=== PATIENT | female | born 1930 | race Hispanic/Latino ===

== ENCOUNTER 2016-11-11 12:34 | Inpatient (IN) | payer MEDICARE, BC ==
[2016-11-11] MEDS ORDERED: Naproxen 500 MG TAB PO STA (13:03)
[2016-11-11] MEDS ORDERED: Naproxen 500 MG TAB PO ONE (13:06)
--- NOTE | 2016-11-11 13:33 | ED PDOC ---
Arrival/HPI - General Chief Complaint: Hip Pain Time Seen by Provider: 11/11/16 12:44 Historian: Patient - History of Present Illness Time/Duration: Other (x 2days ) Associated Symptoms (Text): 11/11/16 13:34 Madeline Thacker is an 86 year old female with a previous medical history of bilateral hip replacement who presents to the ED with complaints of left hip pain ongoing for 2 days after tripping and falling. Patient denies any other injury, dizziness, headache, chest pain, shortness of breath or loss of consciousness. PMD: none provided Past Medical History - Provider Review Nursing Documentation Reviewed: Yes - Cardiac Hx Atrial Fibrillation: Yes Hx Hypertension: Yes Hx Pacemaker: Yes - HEENT Hx Cataracts: Yes Hx Deafness: Yes Other/Comment: wears hearing aid - Endocrine/Metabolic Hx Diabetes Mellitus Type 2: Yes - Musculoskeletal/Rheumatological Hx Arthritis: Yes Hx Back Pain: Yes Hx Degenerative Joint Disease: Yes Hx Falls: Yes Hx Fractures: Yes (r ankle) - Psychiatric Hx Substance Use: No - Surgical History Hx Cataract Extraction: Yes Hx Open Reduction Internal Fixation: Yes (r ankle) Other/Comment: [facility] - Anesthesia Hx Anesthesia: Yes Family/Social History - Physician Review Nursing Documentation Reviewed: Yes Family/Social History: No Known Family HX Smoking Status: Never Smoked Hx Alcohol Use: No Hx Substance Use: No Allergies/Home Meds Allergies/Adverse Reactions: Allergies No Known Allergies Allergy (Verified 11/11/16 12:38) Review of Systems - Physician Review All systems were reviewed & negative as marked: Yes - Review of Systems Constitutional: Normal Eyes: absent: Normal, Vision Changes, Photophobia, Eye Pain, Other Respiratory: Normal. absent: SOB, Cough, Sputum, Wheezing, Other Cardiovascular: Normal Gastrointestinal: Normal Genitourinary Female: Normal Musculoskeletal: Other (left hip pain ) Skin: Normal Psychiatric: Normal Physical Exam Vital Signs Reviewed: Yes Vital Signs Temp Pulse Resp BP Pulse Ox 11/11/16 12:38 98.7 F 60 17 111/54 L 93 L Appearance: Positive for: Well-Appearing, Non-Toxic, Comfortable Pain Distress: None Mental Status: Positive for: Alert and Oriented X 3 - Systems Exam Head: Present: Atraumatic, Normocephalic Pupils: Present: PERRL Extroacular Muscles: Present: EOMI Conjunctiva: Present: Normal Neck: Present: Normal Range of Motion Respiratory/Chest: Present: Clear to Auscultation, Good Air Exchange. No: Respiratory Distress, Accessory Muscle Use Cardiovascular: Present: Regular Rate and Rhythm, Normal S1, S2. No: Murmurs Abdomen: Present: Normal Bowel Sounds. No: Tenderness, Distention, Peritoneal Signs Upper Extremity: Present: Normal Inspection. No: Cyanosis, Edema Lower Extremity: Present: Normal ROM, Other (left hip tenderness ). No: Deformity Neurological: Present: GCS=15, CN II-XII Intact, Speech Normal Skin: Present: Warm, Dry, Normal Color. No: Rashes Medical Decision Making ED Course and Treatment: 11/11/16 13:31 Initial Plan: * Naproxen 500 mg PO * x-ray hip * reevaluation Scribe Attestation: Documented by Leti Chan, acting as a scribe for Ramiro Barrera MD. Provider Scribe Attestation: All medical record entries made by the Scribe were at my direction and personally dictated by me. I have reviewed the chart and agree that the record accurately reflects my personal performance of the history, physical exam, medical decision making, and the department course for this patient. I have also personally directed, reviewed, and agree with the discharge instructions and disposition. - RAD Interpretation Radiology Orders: 11/11/16 13:03 HIP MIN 2V W/ PELVIS LT [RAD] Stat - Medication Orders Current Medication Orders: Discontinued Medications Naproxen (Naproxen) 500 mg PO STAT STA Stop: 11/11/16 13:04 Last Admin: 11/11/16 13:07 Dose: 500 mg Naproxen (Naproxen) Confirm Administered Dose 500 mg PO .STK-MED ONE Stop: 11/11/16 13:07 Disposition/Present on Arrival - Present on Arrival Any Indicators Present on Arrival: No - Disposition Have Diagnosis and Disposition been Completed?: Yes Diagnosis: Contusion of hip Disposition: HOME/ ROUTINE Disposition Time: 14:00 Condition: FAIR Discharge Instructions (ExitCare): Contusion in Adults (ED) Prescriptions: Naproxen [Naprosyn] 500 mg PO Q12H #20 tab
--- NOTE | 2016-11-11 13:57 | RAD ---
PROCEDURE: Pelvis and left hip HISTORY: trauma COMPARISON: TECHNIQUE: Four views FINDINGS: Bilateral hip prosthesis. No evidence of dislocation, fracture or loosening IMPRESSION: Negative study
[2016-11-11 16:14] LABS: BASO # 0.1 K/uL (0.0-0.2); BASO % 0.7 % (0.0-2.0); EOS # 0.2 K/uL (0.0-0.7); HEMOGLOBIN 12.6 g/dL (12.0-16.0); LYMPH # 1.5 K/uL (1.0-4.3); LYMPH % 15.7 % (20.0-40.0); MEAN CORPUSCULAR HEMOGLOBIN 31.1 pg (27.0-31.0); MEAN CORPUSCULAR HGB CONC 32.7 g/dL (33.0-37.0); MEAN PLATELET VOLUME 9.3 fl (7.2-11.7); MONO # 0.9 K/uL (0.0-0.8); MONO % 9.6 % (0.0-10.0); RBC 4.05 Mil/uL (3.80-5.20); RED CELL DISTRIBUTION WIDTH 13.7 % (11.5-14.5); WHITE BLOOD COUNT 9.7 K/uL (4.8-10.8)
[2016-11-11 16:23] LABS: ALB/GLOB RATIO 1.3 (1.0-2.1); ALBUMIN 4.4 g/dL (3.5-5.0); CALCIUM 9.3 mg/dL (8.4-10.2)
[2016-11-11] MEDS ORDERED: Sodium Chloride 0.9% 1,000 ML IV STA (16:29)
[2016-11-12 07:08] LABS: HEMOGLOBIN 11.9 g/dL (12.0-16.0); MEAN CELL VOLUME 95.1 fl (81.0-99.0); MEAN CORPUSCULAR HEMOGLOBIN 31.4 pg (27.0-31.0); RBC 3.8 Mil/uL (3.80-5.20); RED CELL DISTRIBUTION WIDTH 13.9 % (11.5-14.5); WHITE BLOOD COUNT 7.1 K/uL (4.8-10.8)
[2016-11-12 07:32] LABS: INR 1.7 (0.9-1.2); PARTIAL THROMBOPLASTIN TIME 32.4 Seconds (25.6-37.1); PROTHROMBIN TIME 18.9 Seconds (9.8-13.1)
[2016-11-12 07:42] LABS: ALB/GLOB RATIO 1.2 (1.0-2.1); ALBUMIN 3.7 g/dL (3.5-5.0); ALT/SGPT 38 U/L (9-52); AST/SGOT 32 U/L (14-36); BLOOD UREA NITROGEN 36 mg/dl (7-17); CALCIUM 8.9 mg/dL (8.4-10.2); GFR AFRICAN-AMERICAN > 60; GFR NON-AFRICAN AMERICAN 53; HDL CHOLESTEROL 38 MG/DL (30-70)
[2016-11-12 07:51] LABS: T4 8.33 ug/dl (5.5-11.0)
[2016-11-12 07:54] LABS: LDL CHOLESTEROL 83 mg/dL (0-129)
[2016-11-12] MEDS ORDERED: Patient's Own Med (Irbesartan/Hydrochlorothiazide [Irbesartan-Hctz 300-12.5 Mg Tb] 1 TAB) PO SCH (09:00)
[2016-11-12] MEDS ORDERED: Patient's Own Med (Biotin [Biotin] 1 CAP) PO SCH (09:00)
[2016-11-12] MEDS: Albuterol-Ipratrop 3 mg / 0.5 (3 ml) UD INH PRN (11:51)
--- NOTE | 2016-11-12 15:30 | CP.PCM.HP ---
History of Present Illness - History of Present Illness History of Present Illness: CC: L Hip pain. 86 y/o F, brought by EMS to [facility] for evaluation of L hip pain, onset 2 days CHEMIST, alleviating by rest/ inactivity and pain medications. Pt came c/o of severe L hip pain, associated to tripping ad falling on that side , pain is constant, throbbing type, sharp with severe intensity 10:10 Worsening symptoms: Weakness, Hx of R-L THR. Aggravating factor: Unable to lift the L leg to advance it forward. Unable to flex b/L hips. Pt denied: Injury, fever, chills, v/v/d, abdominal pain. urinary symptoms, dizziness, headache, LOC, CP, SOB, sick contact. PMHx: B/L THR, A Fib, HTN, PPM, DMII, O/A, Back pain, ORIF R Ankle. EKG shows: Atrial-sense ventricular pace rhythm. Echo shows: LV function normal, LVEF normal range. Mild Pulmonary Hypertension. Hip/Pelv X-Ray: No dislocation, fracture or displacement. Present on Admission - Present on Admission Any Indicators Present on Admission: No Review of Systems - Constitutional Constitutional: Weakness - EENT Eyes: Change in Vision, Requires Corrective Lenses Ears: Decreased Hearing Nose/Mouth/Throat: Other (negative) - Cardiovascular Cardiovascular: Other (negative) - Respiratory Respiratory: Other (negative) - Gastrointestinal Gastrointestinal: Other (negative) - Genitourinary Genitourinary: Other (negative) - Musculoskeletal Musculoskeletal: Arthralgias, Back Pain, Limited Range of Motion (L leg/hip), Stiffness - Integumentary Integumentary: Other (negative) - Neurological Neurological: Other (negative) - Psychiatric Psychiatric: Other (negative) - Endocrine Endocrine: Other (negative) - Hematologic/Lymphatic Hematologic: Other (negative) Past Patient History - Past Medical History & Family History Past Medical History?: Yes Pertinent Family History: Unknown - Past Social History Smoking Status: Former Smoker Alcohol: None Drugs: Denies Home Situation {Lives}: With Family - CARDIAC Hx Cardiac Disorders: Yes Hx Atrial Fibrillation: Yes Hx Hypertension: Yes Hx Pacemaker: Yes - PULMONARY Hx Respiratory Disorders: No - NEUROLOGICAL Hx Neurological Disorder: No Other/Comment: denies - HEENT Hx HEENT Problems: Yes Hx Cataracts: Yes Hx Deafness: Yes Other/Comment: wears hearing aid - RENAL Hx Chronic Kidney Disease: No Other/Comment: denies - ENDOCRINE/METABOLIC Hx Endocrine Disorders: Yes Hx Diabetes Mellitus Type 2: Yes - HEMATOLOGICAL/ONCOLOGICAL Hx Blood Disorders: No Other/Comment: denies - INTEGUMENTARY Hx Dermatological Problems: No - MUSCULOSKELETAL/RHEUMATOLOGICAL Hx Musculoskeletal Disorders: Yes Hx Arthritis: Yes Hx Back Pain: Yes Hx Degenerative Joint Disease: Yes Hx Falls: Yes - GASTROINTESTINAL Hx Gastrointestinal Disorders: No - GENITOURINARY/GYNECOLOGICAL Hx Genitourinary Disorders: No - PSYCHIATRIC Hx Psychophysiologic Disorder: No Hx Substance Use: No - SURGICAL HISTORY Hx Surgeries: Yes Hx Cataract Extraction: Yes Hx Open Reduction Internal Fixation: Yes (r ankle) Other/Comment: [facility] - ANESTHESIA Hx Anesthesia: Yes Hx Anesthesia Reactions: No Hx Malignant Hyperthermia: No Has any member of the family had a problem w/ anesthesia?: No Meds Home Medications: Home Medication List Medication Instructions Recorded Confirmed Type Naproxen [Naprosyn] 500 mg PO Q12H #20 tab 11/11/16 Rx Allergies/Adverse Reactions: Allergies Allergy/AdvReac Type Severity Reaction Status Date / Time No Known Allergies Allergy Verified 11/11/16 12:38 Physical Exam - Constitutional Appears: Other (Mild distress.) - Head Exam Head Exam: NORMAL INSPECTION - Eye Exam Eye Exam: PERRL - ENT Exam ENT Exam: Normal Oropharynx - Neck Exam Neck exam: Positive for: Normal Inspection - Respiratory Exam Respiratory Exam: NORMAL BREATHING PATTERN - Cardiovascular Exam Cardiovascular Exam: REGULAR RHYTHM - GI/Abdominal Exam GI & Abdominal Exam: Normal Bowel Sounds, Soft - Extremities Exam Extremities exam: Positive for: tenderness (L hip with decreased ROM) - Back Exam Back exam: NORMAL INSPECTION - Neurological Exam Neurological exam: Alert, Oriented x3 - Psychiatric Exam Psychiatric exam: Normal Mood - Skin Skin Exam: Warm Results - Vital Signs Recent Vital Signs: Last Vital Signs Temp 97.5 F L 11/12/16 08:33 Pulse 68 11/12/16 09:10 Resp 20 11/12/16 08:33 BP 154/67 H 11/12/16 09:10 Pulse Ox 96 11/12/16 09:00 reviewed J.Jose - Labs Result Diagrams: 11/12/16 06:10 11/12/16 06:10 Labs: reviewed JIdaliaPIdalia - EKG Data EKG comments: reviewed J.P. - Impressions Impression: X-Ray Hip/Pelv. reviewed J.P. Echo: reviewed J.P. 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 PT, OT, Orthopedic Consult. - Date & Time Date: 11/12/16
[2016-11-12] MEDS: Morphine 4 MG/ML VIAL IVP PRN (15:53)
--- NOTE | 2016-11-12 15:58 | CARD ---
APPROVED REPORT EKG Measurement Heart [id number] <Conclusion> Atrial-sensed ventricular-paced rhythm Abnormal ECG
[2016-11-12] MEDS ORDERED: Morphine 4 MG/ML VIAL IVP PRN (16:00)
--- NOTE | 2016-11-12 16:19 | CT ---
PROCEDURE: CT of the Left Hip. HISTORY: Hx of fall, loosening of prosthesis COMPARISON: Left hip radiographs 11/11/2016. TECHNIQUE: Contiguous axial images of the right hip were obtained. Coronal and sagittal reformats were generated. This CT exam was performed using one or more of the following dose reduction techniques: Automated exposure control, adjustment of the mA and/or kV according to patient size, and/or use of iterative reconstruction technique. Total x-ray dose: 708 mGy. FINDINGS: BONES: Left total hip replacement hardware appears in position and is unchanged in overall appearance compared to prior radiographs noted above. No definite pattern suggests loosening at this time. There is no hyper cortication at the level of the tip of the femoral prosthesis at the visualized left femoral diaphysis. There is no lucency surrounding the prosthesis either including at the acetabulum. Artifacts obscure local soft tissue evaluation with the adductor, abductor, flexor and extensor musculature appearing grossly nonfocal as imaged. RIGHT HIP JOINT: . No dislocation. SOFT TISSUES: Please see discussion in bones above. IMPRESSION: No fracture dislocation or other suspicious bony finding. Left shoulder replacement hardware appears in good repair position as per above with no direct CT sign to suggest loosening at this time. Artifacts limit the evaluation somewhat.
--- NOTE | 2016-11-12 16:31 | CARD ---
APPROVED REPORT EKG Measurement Heart [id number] [place] [id number] <Conclusion> Atrial-sensed ventricular-paced rhythm Abnormal ECG
--- NOTE | 2016-11-12 17:52 | CARD ---
APPROVED REPORT EXAM: Two-dimensional and M-mode echocardiogram with Doppler and color Doppler. Other Information Quality : AverageRhythm : Pacemaker Technically limited study due to Poor Echo Window INDICATION Atrial Fibrillation 2D DIMENSIONS IVSd0.88 (0.7-1.1cm)LVDd2.69 (3.9-5.9cm) LVOT Diameter1.42 (1.8-2.4cm)PWd0.69 (0.7-1.1cm) IVSs1.27 (0.8-1.2cm)LVDs2.29 (2.5-4.0cm) FS (%) 14.8 %PWs1.11 (0.8-1.2cm) LVEF (%)55.0 (>50%) M-Mode DIMENSIONS Left Atrium (MM)4.68 (2.5-4.0cm)Aortic Root2.47 (2.2-3.7cm) Aortic Cusp Exc.1.71 (1.5-2.0cm) Mitral Valve E/A ratio0.0 TDI E/Lateral E'0.0E/Medial E'0.0 Pulmonary Valve PV Peak Zhgutlzg55.5cm/s Tricuspid Valve TR Peak Pwypegsm002oe/sRAP [id number] Peak Gr.34mmHg [id number] LEFT VENTRICLE The left ventricle is normal size. There is borderline concentric left ventricular hypertrophy. The left ventricular function is normal. The left ventricular ejection fraction is within the normal range. There is normal LV segmental wall motion. Transmitral Doppler flow pattern is Grade I-abnormal relaxation pattern. RIGHT VENTRICLE The right ventricle is mildly dilated. The right ventricle is mildly hypertrophied. The right ventricular systolic function is normal. ATRIA The left atrium is mildly dilated. The right atrium is mildly dilated. AORTIC VALVE The aortic valve is not well visualized. No aortic regurgitation is present. There is no aortic valvular stenosis. MITRAL VALVE The mitral valve is mildly thickened. There is no mitral valve stenosis. There is no mitral valve regurgitation noted. TRICUSPID VALVE The tricuspid valve is normal in structure There is mild tricuspid regurgitation. There is mild pulmonary hypertension. PULMONIC VALVE The pulmonary valve is normal in structure There is mild pulmonic valvular regurgitation. GREAT VESSELS The aortic root is normal in size. The IVC is normal in size and collapses >50% with inspiration. PERICARDIAL EFFUSION There is a trace loculated anterior pericardial effusion. <Conclusion> The left ventricle is normal size. There is borderline concentric left ventricular hypertrophy. The left ventricular function is normal. The left ventricular ejection fraction is within the normal range. There is normal LV segmental wall motion. Transmitral Doppler flow pattern is Grade I-abnormal relaxation pattern. There is mild tricuspid regurgitation. There is mild pulmonary hypertension.
[2016-11-13] MEDS: Albuterol-Ipratrop 3 mg / 0.5 (3 ml) UD INH PRN (09:59)
--- NOTE | 2016-11-13 10:43 | CP.PCM.CON ---
History of Present Illness - History of Present Illness History of Present Illness: ID: 86 yo young appearing female CC: pain and restricted ROM L hip HPI: pt accompanied her brother to colonoscopy yesterday and sustained a slip and fall on L hip Pt with pain and inability to ambulate Pt admitted thru ER at [facility] past med hx blateral THR x 3 yrs ago Review of Systems - Hematologic/Lymphatic Additional comments: ROS - pain andrstricted ROM L hip able to ambulate with difficulty for short distance Past Patient History - Past Medical History & Family History Past Medical History?: Yes - Past Social History Smoking Status: Former Smoker Alcohol: None Drugs: Denies Home Situation {Lives}: With Family - CARDIAC Hx Cardiac Disorders: Yes Hx Atrial Fibrillation: Yes Hx Hypertension: Yes Hx Pacemaker: Yes - PULMONARY Hx Respiratory Disorders: No - NEUROLOGICAL Hx Neurological Disorder: No Other/Comment: denies - HEENT Hx HEENT Problems: Yes Hx Cataracts: Yes Hx Deafness: Yes Other/Comment: wears hearing aid - RENAL Hx Chronic Kidney Disease: No Other/Comment: denies - ENDOCRINE/METABOLIC Hx Endocrine Disorders: Yes Hx Diabetes Mellitus Type 2: Yes - HEMATOLOGICAL/ONCOLOGICAL Hx Blood Disorders: No Other/Comment: denies - INTEGUMENTARY Hx Dermatological Problems: No - MUSCULOSKELETAL/RHEUMATOLOGICAL Hx Musculoskeletal Disorders: Yes Hx Arthritis: Yes Hx Back Pain: Yes Hx Degenerative Joint Disease: Yes Hx Falls: Yes - GASTROINTESTINAL Hx Gastrointestinal Disorders: No - GENITOURINARY/GYNECOLOGICAL Hx Genitourinary Disorders: No - PSYCHIATRIC Hx Psychophysiologic Disorder: No Hx Substance Use: No - SURGICAL HISTORY Hx Surgeries: Yes Hx Cataract Extraction: Yes Hx Open Reduction Internal Fixation: Yes (r ankle) Other/Comment: [facility] - ANESTHESIA Hx Anesthesia: Yes Hx Anesthesia Reactions: No Hx Malignant Hyperthermia: No Has any member of the family had a problem w/ anesthesia?: No Meds Home Medications: Home Medication List Medication Instructions Recorded Confirmed Type Naproxen [Naprosyn] 500 mg PO Q12H #20 tab 11/11/16 Rx Allergies/Adverse Reactions: Allergies Allergy/AdvReac Type Severity Reaction Status Date / Time No Known Allergies Allergy Verified 11/11/16 12:38 - Medications Medications: Current Medications Albuterol/Ipratropium (Duoneb 3 Mg/0.5 Mg (3 Ml) Ud) 3 ml INH RQ4 PRN PRN Reason: Shortness of Breath Last Admin: 11/13/16 09:59 Dose: 3 ml Apixaban (Eliquis) 5 mg PO Q12H REKHA PRN Reason: Protocol Last Admin: 11/13/16 09:43 Dose: 5 mg Cholecalciferol (Vitamin D) 2,000 iu PO DAILY [facility] Last Admin: 11/13/16 09:48 Dose: 2,000 iu Losartan Potassium (Cozaar) 100 mg PO DAILY [facility] Last Admin: 11/13/16 09:44 Dose: 100 mg Morphine Sulfate (Morphine) 2 mg IVP Q4H PRN PRN Reason: Pain, severe (8-10) Morphine Sulfate (Morphine) 1 mg IVP Q4 PRN PRN Reason: Pain, moderate (4-7) Last Admin: 11/12/16 15:53 Dose: 1 mg Sotalol HCl (Betapace) 80 mg PO Q12H [facility] Last Admin: 11/13/16 09:42 Dose: 80 mg Physical Exam - Additional Findings Additional findings: O/E: systemic- wnl Musculoske;letal abl le to stand with difficulty gait short sgtriode length decreased stancew time L somewhat shuffling ROM L hip restricted + tenderness L hip at posterior aspect greater trochanter Results - Vital Signs Recent Vital Signs: Last Vital Signs Temp 97.7 F 11/13/16 08:56 Pulse 64 11/13/16 09:44 Resp 20 11/13/16 08:56 BP 127/64 11/13/16 09:44 Pulse Ox 91 L 11/13/16 08:56 - Labs Result Diagrams: 11/12/16 06:10 11/12/16 06:10 - Impressions Impression: Imaging L hip reveals satisfatorily placed L THR NO evidence for fx Assessment & Plan - Assessment and Plan (Free Text) Assessment: A- comntrusion L hip; R/O stress fx greater trochater (CT negative) P- recommend MRI with Mavric (subtraction) protocol P- physio- foot flat weight bearing with walker
--- NOTE | 2016-11-13 15:43 | CP.PCM.PN ---
Subjective - Date & Time of Evaluation Date of Evaluation: 11/13/16 Time of Evaluation: 14:30 - Subjective Subjective: F/U Contusion L Hip Pt c/o of pain in L hip. Objective - Vital Signs/Intake and Output Vital Signs (last 24 hours): Temp Pulse Resp BP Pulse Ox 97.7 F 64 20 127/64 91 L 11/13/16 08:56 11/13/16 09:44 11/13/16 08:56 11/13/16 09:44 11/13/16 08:56 - Medications Medications: Current Medications Albuterol/Ipratropium (Duoneb 3 Mg/0.5 Mg (3 Ml) Ud) 3 ml INH RQ4 PRN PRN Reason: Shortness of Breath Last Admin: 11/13/16 09:59 Dose: 3 ml Apixaban (Eliquis) 5 mg PO Q12H REKHA PRN Reason: Protocol Last Admin: 11/13/16 09:43 Dose: 5 mg Cholecalciferol (Vitamin D) 2,000 iu PO DAILY [facility] Last Admin: 11/13/16 09:48 Dose: 2,000 iu Losartan Potassium (Cozaar) 100 mg PO DAILY [facility] Last Admin: 11/13/16 09:44 Dose: 100 mg Morphine Sulfate (Morphine) 2 mg IVP Q4H PRN PRN Reason: Pain, severe (8-10) Last Admin: 11/13/16 11:36 Dose: 2 mg Morphine Sulfate (Morphine) 1 mg IVP Q4 PRN PRN Reason: Pain, moderate (4-7) Last Admin: 11/12/16 15:53 Dose: 1 mg Sotalol HCl (Betapace) 80 mg PO Q12H [facility] Last Admin: 11/13/16 09:42 Dose: 80 mg - Labs Labs: PT 18.9 Seconds (9.8-13.1) H 11/12/16 06:10 INR 1.7 (0.9-1.2) H 11/12/16 06:10 APTT 32.4 Seconds (25.6-37.1) 11/12/16 06:10 - Constitutional Appears: No Acute Distress - Head Exam Head Exam: NORMAL INSPECTION - Eye Exam Eye Exam: PERRL - ENT Exam ENT Exam: Normal Oropharynx - Neck Exam Neck Exam: Normal Inspection - Respiratory Exam Respiratory Exam: NORMAL BREATHING PATTERN - Cardiovascular Exam Cardiovascular Exam: REGULAR RHYTHM - GI/Abdominal Exam GI & Abdominal Exam: Soft, Normal Bowel Sounds - Extremities Exam Extremities Exam: Tenderness (L hip with decreased ROM) - Back Exam Back Exam: NORMAL INSPECTION - Neurological Exam Neurological Exam: Alert, Oriented x3 - Psychiatric Exam Psychiatric exam: Normal Mood - Skin Skin Exam: Warm Assessment and Plan (1) Contusion of hip Status: Acute (2) Gait disturbance Status: Acute (3) History of pacemaker Status: Chronic (4) HTN (hypertension) Status: Chronic (5) 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
--- NOTE | 2016-11-14 15:43 | CP.PCM.PN ---
Subjective - Date & Time of Evaluation Date of Evaluation: 11/14/16 Time of Evaluation: 13:30 - Subjective Subjective: F/U Contusion L hip. Pt c/o of less pain in L hip. Objective - Vital Signs/Intake and Output Vital Signs (last 24 hours): Temp Pulse Resp BP Pulse Ox 97.5 F L 63 18 116/67 93 L 11/14/16 08:10 11/14/16 08:10 11/14/16 08:10 11/14/16 09:24 11/14/16 08:10 - Medications Medications: Current Medications Acetaminophen (Tylenol 325mg Tab) 650 mg PO Q4 PRN PRN Reason: pain scale 4-7 Last Admin: 11/14/16 12:48 Dose: 650 mg Albuterol/Ipratropium (Duoneb 3 Mg/0.5 Mg (3 Ml) Ud) 3 ml INH RQ4 PRN PRN Reason: Shortness of Breath Last Admin: 11/13/16 09:59 Dose: 3 ml Apixaban (Eliquis) 5 mg PO Q12H REKHA PRN Reason: Protocol Last Admin: 11/14/16 09:25 Dose: 5 mg Cholecalciferol (Vitamin D) 2,000 iu PO DAILY [facility] Last Admin: 11/14/16 09:25 Dose: 2,000 iu Losartan Potassium (Cozaar) 100 mg PO DAILY [facility] Last Admin: 11/14/16 09:24 Dose: 100 mg Morphine Sulfate (Morphine) 2 mg IVP Q4H PRN PRN Reason: Pain, severe (8-10) Last Admin: 11/13/16 11:36 Dose: 2 mg Morphine Sulfate (Morphine) 1 mg IVP Q4 PRN PRN Reason: Pain, moderate (4-7) Last Admin: 11/12/16 15:53 Dose: 1 mg Sotalol HCl (Betapace) 80 mg PO Q12H REKHA Last Admin: 11/14/16 09:23 Dose: 80 mg - Labs Labs: PT 18.9 Seconds (9.8-13.1) H 11/12/16 06:10 INR 1.7 (0.9-1.2) H 11/12/16 06:10 APTT 32.4 Seconds (25.6-37.1) 11/12/16 06:10 - Constitutional Appears: No Acute Distress - Head Exam Head Exam: NORMAL INSPECTION - Eye Exam Eye Exam: PERRL - ENT Exam ENT Exam: Normal Oropharynx - Neck Exam Neck Exam: Normal Inspection - Respiratory Exam Respiratory Exam: NORMAL BREATHING PATTERN - Cardiovascular Exam Cardiovascular Exam: REGULAR RHYTHM - Extremities Exam Extremities Exam: Tenderness (L hip with decreased ROM) - Back Exam Back Exam: NORMAL INSPECTION - Neurological Exam Neurological Exam: Alert, Oriented x3 - Psychiatric Exam Psychiatric exam: Normal Mood - Skin Skin Exam: Warm Assessment and Plan (1) Contusion of hip Status: Acute (2) Gait disturbance Status: Acute (3) History of pacemaker Status: Chronic (4) HTN (hypertension) Status: Chronic (5) 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
[2016-11-15 08:33] VITALS: O2SAT 93
--- NOTE | 2016-11-15 08:41 | PQF GENQUE ---
Dr. Corley, Is there an associated dx. 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 IVF's 1000 ccs: 100 ccs hour x 10 hours This form is a permanent part of the medical record Clarification of your documentation is requested to better reflect the severity of illness and intensity of treatment of your patient. Indicators present [] Specify: [] [] Specify: [] [] Specify: [] [] Specify: [] Location in the medical record that reflects the above clinical findings: [] Treatment Provided: [] PHYSICIAN'S RESPONSE Based on your medical judgment of the clinical indicators outlined above please clarify the following: [] Practitioner response [] If unable to determine, please check the box, sign and date. Present On Admission (POA) Indicator: [] Present at the time of admission [] Not present at the time of admission [] Clinically Undetermined In responding to this query, please exercise your independent professional judgment. The fact that a question is asked does not imply that any particular answer is desired or expected. Thank you for your clarification on this documentation. If you have any questions please call. * Thank you, Anita Alvarado RN BSN ext. #[phone] MTDD
[2016-11-15] MEDS: Morphine 4 MG/ML VIAL IVP PRN (10:51)
--- NOTE | 2016-11-15 12:19 | CP.PCM.PN ---
Subjective - Date & Time of Evaluation Date of Evaluation: 11/15/16 Time of Evaluation: 10:20 - Subjective Subjective: F/U Contusion L Hip. Pt awake, c/o of L hip pain. Objective - Vital Signs/Intake and Output Vital Signs (last 24 hours): Temp Pulse Resp BP Pulse Ox 97.6 F 62 18 138/80 93 L 11/15/16 08:32 11/15/16 08:32 11/15/16 08:32 11/15/16 08:32 11/15/16 08:32 - Medications Medications: Current Medications Acetaminophen (Tylenol 325mg Tab) 650 mg PO Q4 PRN PRN Reason: pain scale 4-7 Last Admin: 11/15/16 08:47 Dose: 650 mg Albuterol/Ipratropium (Duoneb 3 Mg/0.5 Mg (3 Ml) Ud) 3 ml INH RQ4 PRN PRN Reason: Shortness of Breath Last Admin: 11/13/16 09:59 Dose: 3 ml Apixaban (Eliquis) 5 mg PO Q12H [facility] PRN Reason: Protocol Last Admin: 11/15/16 08:28 Dose: 5 mg Cholecalciferol (Vitamin D) 2,000 iu PO DAILY [facility] Last Admin: 11/15/16 08:28 Dose: 2,000 iu Losartan Potassium (Cozaar) 100 mg PO DAILY [facility] Last Admin: 11/15/16 08:29 Dose: 100 mg Morphine Sulfate (Morphine) 2 mg IVP Q4H PRN PRN Reason: Pain, severe (8-10) Last Admin: 11/13/16 11:36 Dose: 2 mg Morphine Sulfate (Morphine) 1 mg IVP Q4 PRN PRN Reason: Pain, moderate (4-7) Last Admin: 11/15/16 10:51 Dose: 1 mg Sotalol HCl (Betapace) 80 mg PO Q12H [facility] Last Admin: 11/15/16 08:28 Dose: 80 mg - Labs Labs: PT 18.9 Seconds (9.8-13.1) H 11/12/16 06:10 INR 1.7 (0.9-1.2) H 11/12/16 06:10 APTT 32.4 Seconds (25.6-37.1) 11/12/16 06:10 - Constitutional Appears: No Acute Distress - Head Exam Head Exam: NORMAL INSPECTION - Eye Exam Eye Exam: PERRL - ENT Exam ENT Exam: Normal Oropharynx - Neck Exam Neck Exam: Normal Inspection - Respiratory Exam Respiratory Exam: NORMAL BREATHING PATTERN - Cardiovascular Exam Cardiovascular Exam: REGULAR RHYTHM - GI/Abdominal Exam GI & Abdominal Exam: Soft, Normal Bowel Sounds - Extremities Exam Extremities Exam: Tenderness (L Hip with decreased ROM) - Back Exam Back Exam: NORMAL INSPECTION - Neurological Exam Neurological Exam: Alert, Oriented x3 - Psychiatric Exam Psychiatric exam: Depressed - Skin Skin Exam: Warm Assessment and Plan (1) Contusion of hip Status: Acute (2) Gait disturbance Status: Acute (3) History of pacemaker Status: Chronic (4) HTN (hypertension) Status: Chronic (5) 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
[2016-11-15 15:50] VITALS: BP 163/74; PULSE 65; RESP 17; TEMP 97.7
--- NOTE | 2016-11-16 14:32 | RAD ---
HISTORY: f/u COMPARISON: 11/18/2009 FINDINGS: LUNGS: No active pulmonary disease. PLEURA: No significant pleural effusion identified, no pneumothorax apparent. CARDIOVASCULAR: Permanent pacemaker. Normal heart size. No congestive change. OSSEOUS STRUCTURES: No significant abnormalities. VISUALIZED UPPER ABDOMEN: Normal. OTHER FINDINGS: None. IMPRESSION: No active disease.
== END 2016-11-15 15:50 | DRG 605 ==
LOC: H.ER 12:34 → H.ERHOLD 15:16 → H.MEDSURG1 18:44 → OBSVTOIN 11-12 12:16 → H.MEDSURG1 11-13 15:40
PROVIDERS: ADMIT Internal Medicine Pulmonary Disease; ATTEND Internal Medicine Pulmonary Disease
DX: S70.02XA Contusion of left hip, initial encounter (principal); I48.91 Unspecified atrial fibrillation; E11.9 Type 2 diabetes mellitus without complications; E86.0 Dehydration; I10 Essential (primary) hypertension; Z96.643 Presence of artificial hip joint, bilateral; R26.9 Unspecified abnormalities of gait and mobility; M19.90 Unspecified osteoarthritis, unspecified site; W01.0XXA Fall on same level from slipping, tripping and stumbling without subsequent striking against object, initial encounter; Y93.9 Activity, unspecified; Y92.9 Unspecified place or not applicable; Z95.0 Presence of cardiac pacemaker

== ENCOUNTER 2016-11-15 15:35 | Inpatient (IN) | payer OTHER, BC ==
[2016-11-15 15:47] VITALS: BMI 24.3
[2016-11-15] MEDS ORDERED: Albuterol-Ipratrop 3 mg / 0.5 (3 ml) UD INH PRN (16:58)
[2016-11-16] MEDS: Oxycodone/Acetaminophen 5/325 mg Tab PO PRN ×2 (08:14→13:53)
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
[2016-11-16] MEDS: Lidocaine 5% Patch TD SCH (17:11)
[2016-11-17] MEDS: Oxycodone/Acetaminophen 5/325 mg Tab PO PRN ×2 (08:27→13:21)
[2016-11-17] MEDS: Lidocaine 5% Patch TD SCH (08:30)
--- NOTE | 2016-11-17 20:43 | CP.PCM.PN ---
Subjective - Date & Time of Evaluation Date of Evaluation: 11/17/16 Time of Evaluation: 18:00 - Subjective Subjective: F/U Contusion L Hip Less pain in L hip, no A/D. Objective - Vital Signs/Intake and Output Vital Signs (last 24 hours): Temp Pulse Resp BP Pulse Ox 97.2 F L 65 20 106/55 L 96 11/17/16 20:20 11/17/16 20:20 11/17/16 20:20 11/17/16 20:20 11/17/16 20:20 - Medications Medications: Current Medications Acetaminophen (Tylenol 325mg Tab) 650 mg PO Q4 PRN PRN Reason: pain scale 4-7 Albuterol/Ipratropium (Duoneb 3 Mg/0.5 Mg (3 Ml) Ud) 3 ml INH RQ4 PRN PRN Reason: Shortness of Breath Apixaban (Eliquis) 5 mg PO Q12H [facility] PRN Reason: Protocol Last Admin: 11/17/16 08:31 Dose: 5 mg Cholecalciferol (Vitamin D) 2,000 iu PO DAILY [facility] Last Admin: 11/17/16 08:31 Dose: 2,000 iu Lidocaine (Lidoderm) 1 ea TD DAILY [facility] Last Admin: 11/17/16 08:30 Dose: 1 ea Losartan Potassium (Cozaar) 100 mg PO DAILY [facility] Last Admin: 11/17/16 08:31 Dose: 100 mg Oxycodone/Acetaminophen (Percocet 5/325 Mg Tab) 1 tab PO Q4 PRN PRN Reason: Pain, moderate (4-7) Stop: 11/18/16 17:03 Last Admin: 11/17/16 13:21 Dose: 1 tab Sotalol HCl (Betapace) 80 mg PO Q12H [facility] Last Admin: 11/17/16 08:31 Dose: 80 mg - Constitutional Appears: No Acute Distress - Head Exam Head Exam: NORMAL INSPECTION - Eye Exam Eye Exam: PERRL - ENT Exam ENT Exam: Normal Oropharynx - Neck Exam Neck Exam: Normal Inspection - Respiratory Exam Respiratory Exam: NORMAL BREATHING PATTERN - Cardiovascular Exam Cardiovascular Exam: REGULAR RHYTHM - GI/Abdominal Exam GI & Abdominal Exam: Soft, Normal Bowel Sounds - Extremities Exam Extremities Exam: Tenderness (L hip with decreased ROM) - Back Exam Back Exam: NORMAL INSPECTION - Neurological Exam Neurological Exam: Alert, Oriented x3 - Psychiatric Exam Psychiatric exam: Normal Mood - Skin Skin Exam: Warm Assessment and Plan (1) Contusion of hip Status: Acute (2) History of pacemaker Status: Chronic (3) Gait disturbance Status: Acute (4) HTN (hypertension) Status: Chronic (5) 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
[2016-11-18] MEDS: Lidocaine 5% Patch TD SCH (08:32)
[2016-11-18] MEDS: Oxycodone/Acetaminophen 5/325 mg Tab PO PRN ×2 (08:33→13:37)
--- NOTE | 2016-11-18 14:04 | CP.PCM.PN ---
Subjective - Date & Time of Evaluation Date of Evaluation: 11/18/16 Time of Evaluation: 12:50 - Subjective Subjective: F/U L Hip contusion. Pt with less pain in L hip, doing well with PT. Objective - Vital Signs/Intake and Output Vital Signs (last 24 hours): Temp Pulse Resp BP Pulse Ox 96.5 F L 65 20 134/74 94 L 11/18/16 10:00 11/18/16 10:00 11/18/16 10:00 11/18/16 10:00 11/18/16 10:00 - Medications Medications: Current Medications Acetaminophen (Tylenol 325mg Tab) 650 mg PO Q4 PRN PRN Reason: pain scale 4-7 Albuterol/Ipratropium (Duoneb 3 Mg/0.5 Mg (3 Ml) Ud) 3 ml INH RQ4 PRN PRN Reason: Shortness of Breath Apixaban (Eliquis) 5 mg PO Q12H [facility] PRN Reason: Protocol Last Admin: 11/18/16 08:31 Dose: 5 mg Cholecalciferol (Vitamin D) 2,000 iu PO DAILY [facility] Last Admin: 11/18/16 08:32 Dose: 2,000 iu Lidocaine (Lidoderm) 1 ea TD DAILY [facility] Last Admin: 11/18/16 08:32 Dose: 1 ea Losartan Potassium (Cozaar) 100 mg PO DAILY [facility] Last Admin: 11/18/16 08:31 Dose: 100 mg Oxycodone/Acetaminophen (Percocet 5/325 Mg Tab) 1 tab PO Q4 PRN PRN Reason: Pain, moderate (4-7) Stop: 11/18/16 17:03 Last Admin: 11/18/16 13:37 Dose: 1 tab Sotalol HCl (Betapace) 80 mg PO Q12H [facility] Last Admin: 11/18/16 08:31 Dose: 80 mg - Constitutional Appears: No Acute Distress - Head Exam Head Exam: NORMAL INSPECTION - Eye Exam Eye Exam: PERRL - ENT Exam ENT Exam: Normal Oropharynx - Neck Exam Neck Exam: Normal Inspection - Respiratory Exam Respiratory Exam: NORMAL BREATHING PATTERN - Cardiovascular Exam Cardiovascular Exam: REGULAR RHYTHM - GI/Abdominal Exam GI & Abdominal Exam: Soft, Normal Bowel Sounds - Extremities Exam Extremities Exam: Tenderness (L hip with decreased ROM) - Back Exam Back Exam: NORMAL INSPECTION - Neurological Exam Neurological Exam: Alert, Oriented x3 - Psychiatric Exam Psychiatric exam: Normal Mood - Skin Skin Exam: Warm Assessment and Plan (1) Contusion of hip Status: Acute (2) History of pacemaker Status: Chronic (3) Gait disturbance Status: Acute (4) HTN (hypertension) Status: Chronic (5) 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
--- NOTE | 2016-11-18 18:02 | CP.PCM.PN ---
Subjective - Date & Time of Evaluation Date of Evaluation: 11/18/16 Time of Evaluation: 18:02 - Subjective Subjective: Patient seen looks much better less pain continue with therapies now that she is able to participate more continue current meds Objective - Vital Signs/Intake and Output Vital Signs (last 24 hours): Temp Pulse Resp BP Pulse Ox 97.2 F L 69 20 97/44 L 97 11/18/16 16:21 11/18/16 16:21 11/18/16 16:21 11/18/16 16:21 11/18/16 16:21 - Medications Medications: Current Medications Acetaminophen (Tylenol 325mg Tab) 650 mg PO Q4 PRN PRN Reason: pain scale 4-7 Albuterol/Ipratropium (Duoneb 3 Mg/0.5 Mg (3 Ml) Ud) 3 ml INH RQ4 PRN PRN Reason: Shortness of Breath Apixaban (Eliquis) 5 mg PO Q12H [facility] PRN Reason: Protocol Last Admin: 11/18/16 08:31 Dose: 5 mg Cholecalciferol (Vitamin D) 2,000 iu PO DAILY [facility] Last Admin: 11/18/16 08:32 Dose: 2,000 iu Lidocaine (Lidoderm) 1 ea TD DAILY [facility] Last Admin: 11/18/16 08:32 Dose: 1 ea Losartan Potassium (Cozaar) 100 mg PO DAILY [facility] Last Admin: 11/18/16 08:31 Dose: 100 mg Oxycodone/Acetaminophen (Percocet 5/325 Mg Tab) 1 tab PO Q4 PRN PRN Reason: Pain, moderate (4-7) Stop: 11/21/16 17:43 Sotalol HCl (Betapace) 80 mg PO Q12H [facility] Last Admin: 11/18/16 08:31 Dose: 80 mg
[2016-11-19] MEDS: Lidocaine 5% Patch TD SCH (08:32)
[2016-11-19] MEDS: Oxycodone/Acetaminophen 5/325 mg Tab PO PRN (09:41)
[2016-11-19] MEDS ORDERED: Oxycodone/Acetaminophen 5/325 mg Tab PO ONE (13:05)
--- NOTE | 2016-11-19 20:29 | CP.PCM.PN ---
Subjective - Date & Time of Evaluation Date of Evaluation: 11/19/16 Time of Evaluation: 14:20 - Subjective Subjective: F/U Contusion L hip Pain L Hip improved , ambulating with PT Objective - Vital Signs/Intake and Output Vital Signs (last 24 hours): Temp Pulse Resp BP Pulse Ox 97.5 F L 68 20 113/54 L 95 11/19/16 17:09 11/19/16 17:09 11/19/16 17:09 11/19/16 17:09 11/19/16 17:09 - Medications Medications: Current Medications Acetaminophen (Tylenol 325mg Tab) 650 mg PO Q4 PRN PRN Reason: pain scale 4-7 Albuterol/Ipratropium (Duoneb 3 Mg/0.5 Mg (3 Ml) Ud) 3 ml INH RQ4 PRN PRN Reason: Shortness of Breath Apixaban (Eliquis) 5 mg PO Q12H [facility] PRN Reason: Protocol Last Admin: 11/19/16 08:30 Dose: 5 mg Cholecalciferol (Vitamin D) 2,000 iu PO DAILY [facility] Last Admin: 11/19/16 09:43 Dose: 2,000 iu Lidocaine (Lidoderm) 1 ea TD DAILY [facility] Last Admin: 11/19/16 08:32 Dose: 1 ea Losartan Potassium (Cozaar) 100 mg PO DAILY [facility] Last Admin: 11/19/16 08:31 Dose: 100 mg Oxycodone/Acetaminophen (Percocet 5/325 Mg Tab) 1 tab PO Q4 PRN PRN Reason: Pain, moderate (4-7) Stop: 11/21/16 17:43 Last Admin: 11/19/16 09:41 Dose: 1 tab Sotalol HCl (Betapace) 80 mg PO Q12H [facility] Last Admin: 11/19/16 08:30 Dose: 80 mg - Constitutional Appears: No Acute Distress - Head Exam Head Exam: NORMAL INSPECTION - Eye Exam Eye Exam: PERRL - ENT Exam ENT Exam: Normal Oropharynx - Neck Exam Neck Exam: Normal Inspection - Respiratory Exam Respiratory Exam: NORMAL BREATHING PATTERN - Cardiovascular Exam Cardiovascular Exam: REGULAR RHYTHM - GI/Abdominal Exam GI & Abdominal Exam: Soft, Normal Bowel Sounds - Extremities Exam Extremities Exam: Tenderness (L hip ) - Back Exam Back Exam: NORMAL INSPECTION - Neurological Exam Neurological Exam: Alert, Oriented x3 - Psychiatric Exam Psychiatric exam: Normal Mood - Skin Skin Exam: Warm Assessment and Plan (1) Contusion of hip Status: Acute (2) History of pacemaker Status: Chronic (3) Gait disturbance Status: Acute (4) HTN (hypertension) Status: Chronic (5) 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
[2016-11-20] MEDS: Lidocaine 5% Patch TD SCH (09:30)
[2016-11-20] MEDS: Oxycodone/Acetaminophen 5/325 mg Tab PO PRN (09:59)
[2016-11-21 07:25] LABS: BASO # 0.1 K/uL (0.0-0.2); BASO % 0.7 % (0.0-2.0); EOS # 0.2 K/uL (0.0-0.7); EOS % 3.6 % (0.0-4.0); HEMOGLOBIN 11.3 g/dL (12.0-16.0); LYMPH # 1.7 K/uL (1.0-4.3); LYMPH % 25.6 % (20.0-40.0); MEAN CELL VOLUME 95.2 fl (81.0-99.0); MEAN CORPUSCULAR HEMOGLOBIN 31.7 pg (27.0-31.0); MEAN CORPUSCULAR HGB CONC 33.3 g/dL (33.0-37.0); MEAN PLATELET VOLUME 8.6 fl (7.2-11.7); MONO # 0.7 K/uL (0.0-0.8); MONO % 10.3 % (0.0-10.0); NEUT # 4.1 K/uL (1.8-7.0); NEUT % 59.8 % (50.0-75.0); RBC 3.57 Mil/uL (3.80-5.20); RED CELL DISTRIBUTION WIDTH 13.8 % (11.5-14.5); WHITE BLOOD COUNT 6.8 K/uL (4.8-10.8)
[2016-11-21 07:51] LABS: ALB/GLOB RATIO 1.1 (1.0-2.1); ALBUMIN 3.6 g/dL (3.5-5.0); ALT/SGPT 33 U/L (9-52); AST/SGOT 22 U/L (14-36); BLOOD UREA NITROGEN 28 mg/dl (7-17); CALCIUM 9.4 mg/dL (8.4-10.2); GFR AFRICAN-AMERICAN > 60; GFR NON-AFRICAN AMERICAN > 60
[2016-11-21 08:12] LABS: INR 1.4 (0.9-1.2); PARTIAL THROMBOPLASTIN TIME 32.8 Seconds (25.6-37.1); PROTHROMBIN TIME 15.3 Seconds (9.8-13.1)
[2016-11-21] MEDS: Lidocaine 5% Patch TD SCH (08:19)
[2016-11-21 08:30] VITALS: RESP 20
--- NOTE | 2016-11-21 12:32 | CP.PCM.PN ---
Subjective - Date & Time of Evaluation Date of Evaluation: 11/21/16 Time of Evaluation: 12:00 - Subjective Subjective: F/U L Hip contusion Pt c/o of L hip pain Objective - Vital Signs/Intake and Output Vital Signs (last 24 hours): Temp Pulse Resp BP Pulse Ox 97.2 F L 62 20 140/62 90 L 11/21/16 08:30 11/21/16 08:30 11/21/16 08:30 11/21/16 08:30 11/21/16 08:30 - Medications Medications: Current Medications Acetaminophen (Tylenol 325mg Tab) 650 mg PO Q4 PRN PRN Reason: pain scale 4-7 Albuterol/Ipratropium (Duoneb 3 Mg/0.5 Mg (3 Ml) Ud) 3 ml INH RQ4 PRN PRN Reason: Shortness of Breath Apixaban (Eliquis) 5 mg PO Q12H [facility] PRN Reason: Protocol Last Admin: 11/21/16 08:18 Dose: 5 mg Cholecalciferol (Vitamin D) 2,000 iu PO DAILY [facility] Last Admin: 11/21/16 08:19 Dose: 2,000 iu Lidocaine (Lidoderm) 1 ea TD DAILY [facility] Last Admin: 11/21/16 08:19 Dose: 1 ea Losartan Potassium (Cozaar) 100 mg PO DAILY [facility] Last Admin: 11/21/16 08:18 Dose: 100 mg Oxycodone/Acetaminophen (Percocet 5/325 Mg Tab) 1 tab PO Q4 PRN PRN Reason: Pain, moderate (4-7) Stop: 11/21/16 17:43 Last Admin: 11/20/16 09:59 Dose: 1 tab Sotalol HCl (Betapace) 80 mg PO Q12H [facility] Last Admin: 11/21/16 08:18 Dose: 80 mg - Labs Labs: 11/21/16 06:00 11/21/16 06:00 PT 15.3 Seconds (9.8-13.1) H 11/21/16 06:00 INR 1.4 (0.9-1.2) H 11/21/16 06:00 APTT 32.8 Seconds (25.6-37.1) 11/21/16 06:00 - Constitutional Appears: No Acute Distress - Head Exam Head Exam: NORMAL INSPECTION - Eye Exam Eye Exam: PERRL - ENT Exam ENT Exam: Normal Oropharynx - Neck Exam Neck Exam: Normal Inspection - Respiratory Exam Respiratory Exam: NORMAL BREATHING PATTERN - Cardiovascular Exam Cardiovascular Exam: REGULAR RHYTHM - GI/Abdominal Exam GI & Abdominal Exam: Soft, Normal Bowel Sounds - Extremities Exam Extremities Exam: Tenderness (L hip with decreased ROM) - Back Exam Back Exam: NORMAL INSPECTION - Neurological Exam Neurological Exam: Alert, Oriented x3 - Psychiatric Exam Psychiatric exam: Normal Mood - Skin Skin Exam: Warm Assessment and Plan (1) Contusion of hip Status: Acute (2) History of pacemaker Status: Chronic (3) Gait disturbance Status: Acute (4) HTN (hypertension) Status: Chronic (5) 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
[2016-11-22] MEDS: Lidocaine 5% Patch TD SCH (08:51)
[2016-11-22] MEDS: Oxycodone/Acetaminophen 5/325 mg Tab PO PRN ×2 (09:34→13:33)
--- NOTE | 2016-11-22 14:58 | CP.PCM.PN ---
Subjective - Date & Time of Evaluation Date of Evaluation: 11/22/16 Time of Evaluation: 10:00 - Subjective Subjective: F/U L hip contusion. Pt slightly improved, L hip pain, walking with PT. Objective - Vital Signs/Intake and Output Vital Signs (last 24 hours): Temp Pulse Resp BP Pulse Ox 96.6 F L 60 20 133/68 92 L 11/22/16 08:27 11/22/16 08:50 11/22/16 08:27 11/22/16 08:50 11/22/16 08:27 - Medications Medications: Current Medications Acetaminophen (Tylenol 325mg Tab) 650 mg PO Q4 PRN PRN Reason: pain scale 4-7 Albuterol/Ipratropium (Duoneb 3 Mg/0.5 Mg (3 Ml) Ud) 3 ml INH RQ4 PRN PRN Reason: Shortness of Breath Apixaban (Eliquis) 5 mg PO Q12H [facility] PRN Reason: Protocol Last Admin: 11/22/16 08:49 Dose: 5 mg Cholecalciferol (Vitamin D) 2,000 iu PO DAILY [facility] Last Admin: 11/22/16 08:49 Dose: 2,000 iu Lidocaine (Lidoderm) 1 ea TD DAILY [facility] Last Admin: 11/22/16 08:51 Dose: 1 ea Losartan Potassium (Cozaar) 100 mg PO DAILY [facility] Last Admin: 11/22/16 08:50 Dose: 100 mg Oxycodone/Acetaminophen (Percocet 5/325 Mg Tab) 1 tab PO Q4 PRN PRN Reason: Pain, moderate (4-7) Stop: 11/24/16 17:57 Last Admin: 11/22/16 13:33 Dose: 1 tab Sotalol HCl (Betapace) 80 mg PO Q12H [facility] Last Admin: 11/22/16 08:49 Dose: 80 mg - Labs Labs: 11/21/16 06:00 11/21/16 06:00 PT 15.3 Seconds (9.8-13.1) H 11/21/16 06:00 INR 1.4 (0.9-1.2) H 11/21/16 06:00 APTT 32.8 Seconds (25.6-37.1) 11/21/16 06:00 - Constitutional Appears: No Acute Distress - Head Exam Head Exam: NORMAL INSPECTION - Eye Exam Eye Exam: PERRL - ENT Exam ENT Exam: Normal Oropharynx - Neck Exam Neck Exam: Normal Inspection - Respiratory Exam Respiratory Exam: NORMAL BREATHING PATTERN - Cardiovascular Exam Cardiovascular Exam: REGULAR RHYTHM - GI/Abdominal Exam GI & Abdominal Exam: Soft, Normal Bowel Sounds - Extremities Exam Extremities Exam: Tenderness (L hip with decreased ROM) - Back Exam Back Exam: NORMAL INSPECTION - Neurological Exam Neurological Exam: Alert, Oriented x3 - Psychiatric Exam Psychiatric exam: Normal Mood - Skin Skin Exam: Warm Assessment and Plan (1) Contusion of hip Status: Acute (2) History of pacemaker Status: Chronic (3) Gait disturbance Status: Acute (4) HTN (hypertension) Status: Chronic (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
--- NOTE | 2016-11-22 17:37 | CP.PCM.PN ---
Subjective - Date & Time of Evaluation Date of Evaluation: 11/22/16 Time of Evaluation: 17:36 - Subjective Subjective: Patient seen in room able to ambulate only 40' has brother at home who needs help I feel that she would need approximately 2-3 more weeks of KIKO at this point Objective - Vital Signs/Intake and Output Vital Signs (last 24 hours): Temp Pulse Resp BP Pulse Ox 97.3 F L 69 20 121/51 L 95 11/22/16 16:47 11/22/16 16:47 11/22/16 16:47 11/22/16 16:47 11/22/16 16:47 - Medications Medications: Current Medications Acetaminophen (Tylenol 325mg Tab) 650 mg PO Q4 PRN PRN Reason: pain scale 4-7 Albuterol/Ipratropium (Duoneb 3 Mg/0.5 Mg (3 Ml) Ud) 3 ml INH RQ4 PRN PRN Reason: Shortness of Breath Apixaban (Eliquis) 5 mg PO Q12H [facility] PRN Reason: Protocol Last Admin: 11/22/16 08:49 Dose: 5 mg Cholecalciferol (Vitamin D) 2,000 iu PO DAILY [facility] Last Admin: 11/22/16 08:49 Dose: 2,000 iu Lidocaine (Lidoderm) 1 ea TD DAILY [facility] Last Admin: 11/22/16 08:51 Dose: 1 ea Losartan Potassium (Cozaar) 100 mg PO DAILY [facility] Last Admin: 11/22/16 08:50 Dose: 100 mg Oxycodone/Acetaminophen (Percocet 5/325 Mg Tab) 1 tab PO Q4 PRN PRN Reason: Pain, moderate (4-7) Stop: 11/24/16 17:57 Last Admin: 11/22/16 13:33 Dose: 1 tab Sotalol HCl (Betapace) 80 mg PO Q12H [facility] Last Admin: 11/22/16 08:49 Dose: 80 mg - Labs Labs: 11/21/16 06:00 11/21/16 06:00 PT 15.3 Seconds (9.8-13.1) H 11/21/16 06:00 INR 1.4 (0.9-1.2) H 11/21/16 06:00 APTT 32.8 Seconds (25.6-37.1) 11/21/16 06:00
[2016-11-23] MEDS: Lidocaine 5% Patch TD SCH (08:19)
[2016-11-23] MEDS: Oxycodone/Acetaminophen 5/325 mg Tab PO PRN ×2 (09:57→13:44)
--- NOTE | 2016-11-23 19:18 | CP.PCM.PN ---
Subjective - Date & Time of Evaluation Date of Evaluation: 11/23/16 Time of Evaluation: 13:15 - Subjective Subjective: F/U Hip Contusion. Pt with less hip pain. Objective - Vital Signs/Intake and Output Vital Signs (last 24 hours): Temp Pulse Resp BP Pulse Ox 98.2 F 65 20 121/60 96 11/23/16 16:43 11/23/16 16:43 11/23/16 16:43 11/23/16 16:43 11/23/16 16:43 - Medications Medications: Current Medications Acetaminophen (Tylenol 325mg Tab) 650 mg PO Q4 PRN PRN Reason: pain scale 4-7 Albuterol/Ipratropium (Duoneb 3 Mg/0.5 Mg (3 Ml) Ud) 3 ml INH RQ4 PRN PRN Reason: Shortness of Breath Apixaban (Eliquis) 5 mg PO Q12H [facility] PRN Reason: Protocol Last Admin: 11/23/16 08:19 Dose: 5 mg Cholecalciferol (Vitamin D) 2,000 iu PO DAILY [facility] Last Admin: 11/23/16 08:19 Dose: 2,000 iu Lidocaine (Lidoderm) 1 ea TD DAILY [facility] Last Admin: 11/23/16 08:19 Dose: 1 ea Losartan Potassium (Cozaar) 100 mg PO DAILY [facility] Last Admin: 11/23/16 08:15 Dose: 100 mg Oxycodone/Acetaminophen (Percocet 5/325 Mg Tab) 1 tab PO Q4 PRN PRN Reason: Pain, moderate (4-7) Stop: 11/24/16 17:57 Last Admin: 11/23/16 13:44 Dose: 1 tab Sotalol HCl (Betapace) 80 mg PO Q12H [facility] Last Admin: 11/23/16 08:13 Dose: 80 mg - Labs Labs: 11/21/16 06:00 11/21/16 06:00 PT 15.3 Seconds (9.8-13.1) H 11/21/16 06:00 INR 1.4 (0.9-1.2) H 11/21/16 06:00 APTT 32.8 Seconds (25.6-37.1) 11/21/16 06:00 - Constitutional Appears: No Acute Distress - Head Exam Head Exam: NORMAL INSPECTION - Eye Exam Eye Exam: PERRL - ENT Exam ENT Exam: Normal Oropharynx - Neck Exam Neck Exam: Normal Inspection - Respiratory Exam Respiratory Exam: NORMAL BREATHING PATTERN - Cardiovascular Exam Cardiovascular Exam: REGULAR RHYTHM - GI/Abdominal Exam GI & Abdominal Exam: Soft, Normal Bowel Sounds - Extremities Exam Extremities Exam: Tenderness (L hip with decreased ROM) - Back Exam Back Exam: NORMAL INSPECTION - Neurological Exam Neurological Exam: Alert, Oriented x3 - Psychiatric Exam Psychiatric exam: Normal Mood - Skin Skin Exam: Warm Assessment and Plan (1) Contusion of hip Status: Acute (2) History of pacemaker Status: Chronic (3) Gait disturbance Status: Acute (4) HTN (hypertension) Status: Chronic (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
[2016-11-24] MEDS: Oxycodone/Acetaminophen 5/325 mg Tab PO PRN ×2 (09:17→13:28)
[2016-11-24] MEDS: Lidocaine 5% Patch TD SCH (09:19)
--- NOTE | 2016-11-24 14:34 | CP.PCM.PN ---
Subjective - Date & Time of Evaluation Date of Evaluation: 11/24/16 Time of Evaluation: 14:45 - Subjective Subjective: F/U Contusion L hip Pt c/o of L hip pain. Objective - Vital Signs/Intake and Output Vital Signs (last 24 hours): Temp Pulse Resp BP Pulse Ox 97.2 F L 62 20 131/61 99 11/24/16 08:15 11/24/16 09:19 11/24/16 08:15 11/24/16 09:19 11/24/16 08:15 - Medications Medications: Current Medications Acetaminophen (Tylenol 325mg Tab) 650 mg PO Q4 PRN PRN Reason: pain scale 4-7 Albuterol/Ipratropium (Duoneb 3 Mg/0.5 Mg (3 Ml) Ud) 3 ml INH RQ4 PRN PRN Reason: Shortness of Breath Apixaban (Eliquis) 5 mg PO Q12H [facility] PRN Reason: Protocol Last Admin: 11/24/16 09:18 Dose: 5 mg Cholecalciferol (Vitamin D) 2,000 iu PO DAILY [facility] Last Admin: 11/24/16 09:21 Dose: 2,000 iu Lidocaine (Lidoderm) 1 ea TD DAILY [facility] Last Admin: 11/24/16 09:19 Dose: 1 ea Losartan Potassium (Cozaar) 100 mg PO DAILY [facility] Last Admin: 11/24/16 09:19 Dose: 100 mg Oxycodone/Acetaminophen (Percocet 5/325 Mg Tab) 1 tab PO Q4 PRN PRN Reason: Pain, moderate (4-7) Stop: 11/24/16 17:57 Last Admin: 11/24/16 13:28 Dose: 1 tab Sotalol HCl (Betapace) 80 mg PO Q12H [facility] Last Admin: 11/24/16 09:18 Dose: 80 mg - Labs Labs: 11/21/16 06:00 11/21/16 06:00 PT 15.3 Seconds (9.8-13.1) H 11/21/16 06:00 INR 1.4 (0.9-1.2) H 11/21/16 06:00 APTT 32.8 Seconds (25.6-37.1) 11/21/16 06:00 - Constitutional Appears: No Acute Distress - Head Exam Head Exam: NORMAL INSPECTION - Eye Exam Eye Exam: PERRL - ENT Exam ENT Exam: Normal Oropharynx - Neck Exam Neck Exam: Normal Inspection - Respiratory Exam Respiratory Exam: NORMAL BREATHING PATTERN - Cardiovascular Exam Cardiovascular Exam: REGULAR RHYTHM - GI/Abdominal Exam GI & Abdominal Exam: Soft, Normal Bowel Sounds - Extremities Exam Extremities Exam: Tenderness (L hip with decreased ROM) - Back Exam Back Exam: NORMAL INSPECTION - Neurological Exam Neurological Exam: Alert, Oriented x3 - Psychiatric Exam Psychiatric exam: Normal Mood - Skin Skin Exam: Warm Assessment and Plan (1) Contusion of hip Status: Acute (2) History of pacemaker Status: Chronic (3) Gait disturbance Status: Acute (4) HTN (hypertension) Status: Chronic (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
--- NOTE | 2016-11-24 15:22 | RAD ---
PROCEDURE: Left Hip X-ray Radiographs. HISTORY: follow up study COMPARISON: 11/12/2016 CT pelvis left hip FINDINGS: BONES: No acute findings. Satisfactory in anatomic alignment of components of left VIRGIL JOINTS: No acute/ significant findings. SOFT TISSUES: Normal. OTHER FINDINGS: None. IMPRESSION: No significant interval change compared to the prior examination(s). No acute findings related to/accounting for the clinical presentation.
[2016-11-25] MEDS: Lidocaine 5% Patch TD SCH (08:15)
[2016-11-25] MEDS: Oxycodone/Acetaminophen 5/325 mg Tab PO PRN ×2 (09:10→13:39)
--- NOTE | 2016-11-25 12:51 | CP.PCM.PN ---
Subjective - Date & Time of Evaluation Date of Evaluation: 11/25/16 Time of Evaluation: 09:30 - Subjective Subjective: F/U Contusion R Hip Pain in L hip improved, doing well with PT. Objective - Vital Signs/Intake and Output Vital Signs (last 24 hours): Temp Pulse Resp BP Pulse Ox 97.2 F L 66 20 131/59 L 99 11/25/16 08:01 11/25/16 08:25 11/25/16 08:01 11/25/16 08:25 11/25/16 08:01 - Medications Medications: Current Medications Acetaminophen (Tylenol 325mg Tab) 650 mg PO Q4 PRN PRN Reason: pain scale 4-7 Albuterol/Ipratropium (Duoneb 3 Mg/0.5 Mg (3 Ml) Ud) 3 ml INH RQ4 PRN PRN Reason: Shortness of Breath Apixaban (Eliquis) 5 mg PO Q12H [facility] PRN Reason: Protocol Last Admin: 11/25/16 08:26 Dose: 5 mg Cholecalciferol (Vitamin D) 2,000 iu PO DAILY [facility] Last Admin: 11/25/16 08:25 Dose: 2,000 iu Lidocaine (Lidoderm) 1 ea TD DAILY [facility] Last Admin: 11/25/16 08:15 Dose: 1 ea Losartan Potassium (Cozaar) 100 mg PO DAILY [facility] Last Admin: 11/25/16 08:25 Dose: 100 mg Oxycodone/Acetaminophen (Percocet 5/325 Mg Tab) 1 tab PO Q4 PRN PRN Reason: Pain, moderate (4-7) Stop: 11/28/16 09:10 Sotalol HCl (Betapace) 80 mg PO Q12H [facility] Last Admin: 11/25/16 08:24 Dose: 80 mg - Labs Labs: 11/21/16 06:00 11/21/16 06:00 PT 15.3 Seconds (9.8-13.1) H 11/21/16 06:00 INR 1.4 (0.9-1.2) H 11/21/16 06:00 APTT 32.8 Seconds (25.6-37.1) 11/21/16 06:00 - Constitutional Appears: No Acute Distress, Chronically Ill - Head Exam Head Exam: NORMAL INSPECTION - Eye Exam Eye Exam: PERRL - ENT Exam ENT Exam: Normal Oropharynx - Neck Exam Neck Exam: Normal Inspection - Respiratory Exam Respiratory Exam: NORMAL BREATHING PATTERN - Cardiovascular Exam Cardiovascular Exam: REGULAR RHYTHM - GI/Abdominal Exam GI & Abdominal Exam: Soft, Normal Bowel Sounds - Extremities Exam Extremities Exam: Tenderness (L hip with decreased ROM) - Back Exam Back Exam: NORMAL INSPECTION - Neurological Exam Neurological Exam: Alert, Oriented x3 - Psychiatric Exam Psychiatric exam: Normal Mood - Skin Skin Exam: Warm Assessment and Plan (1) Contusion of hip Status: Acute (2) History of pacemaker Status: Chronic (3) Gait disturbance Status: Acute (4) HTN (hypertension) Status: Chronic (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
--- NOTE | 2016-11-25 14:41 | CP.PCM.PN ---
Subjective - Date & Time of Evaluation Date of Evaluation: 11/25/16 Time of Evaluation: 14:40 - Subjective Subjective: Patient is seen in PT feeling better able to ambulate now 60' with DS this is a very good improvement pending re-evaluation by Dr Solares to consider increasing WB status, no TTWB still continue current care Objective - Vital Signs/Intake and Output Vital Signs (last 24 hours): Temp Pulse Resp BP Pulse Ox 97.2 F L 66 20 131/59 L 99 11/25/16 08:01 11/25/16 08:25 11/25/16 08:01 11/25/16 08:25 11/25/16 08:01 - Medications Medications: Current Medications Acetaminophen (Tylenol 325mg Tab) 650 mg PO Q4 PRN PRN Reason: pain scale 4-7 Albuterol/Ipratropium (Duoneb 3 Mg/0.5 Mg (3 Ml) Ud) 3 ml INH RQ4 PRN PRN Reason: Shortness of Breath Apixaban (Eliquis) 5 mg PO Q12H [facility] PRN Reason: Protocol Last Admin: 11/25/16 08:26 Dose: 5 mg Cholecalciferol (Vitamin D) 2,000 iu PO DAILY [facility] Last Admin: 11/25/16 08:25 Dose: 2,000 iu Lidocaine (Lidoderm) 1 ea TD DAILY [facility] Last Admin: 11/25/16 08:15 Dose: 1 ea Losartan Potassium (Cozaar) 100 mg PO DAILY [facility] Last Admin: 11/25/16 08:25 Dose: 100 mg Oxycodone/Acetaminophen (Percocet 5/325 Mg Tab) 1 tab PO Q4 PRN PRN Reason: Pain, moderate (4-7) Stop: 11/28/16 09:10 Last Admin: 11/25/16 13:39 Dose: 1 tab Sotalol HCl (Betapace) 80 mg PO Q12H [facility] Last Admin: 11/25/16 08:24 Dose: 80 mg - Labs Labs: 11/21/16 06:00 11/21/16 06:00 PT 15.3 Seconds (9.8-13.1) H 11/21/16 06:00 INR 1.4 (0.9-1.2) H 11/21/16 06:00 APTT 32.8 Seconds (25.6-37.1) 11/21/16 06:00
[2016-11-26 08:26] VITALS: PULSE 60
[2016-11-26] MEDS: Lidocaine 5% Patch TD SCH (08:54)
[2016-11-26] MEDS: Oxycodone/Acetaminophen 5/325 mg Tab PO PRN ×2 (08:58→13:48)
--- NOTE | 2016-11-26 12:42 | CP.PCM.PN ---
Subjective - Date & Time of Evaluation Date of Evaluation: 11/26/16 Time of Evaluation: 11:00 - Subjective Subjective: F/U Contusion L Hip. Pt said L hip pain has improved, doing better with PT walking with a walker Objective - Vital Signs/Intake and Output Vital Signs (last 24 hours): Temp Pulse Resp BP Pulse Ox 96.8 F L 60 20 138/64 93 L 11/26/16 08:25 11/26/16 08:54 11/26/16 08:25 11/26/16 08:54 11/26/16 08:25 - Medications Medications: Current Medications Acetaminophen (Tylenol 325mg Tab) 650 mg PO Q4 PRN PRN Reason: pain scale 4-7 Albuterol/Ipratropium (Duoneb 3 Mg/0.5 Mg (3 Ml) Ud) 3 ml INH RQ4 PRN PRN Reason: Shortness of Breath Apixaban (Eliquis) 5 mg PO Q12H [facility] PRN Reason: Protocol Last Admin: 11/26/16 08:54 Dose: 5 mg Cholecalciferol (Vitamin D) 2,000 iu PO DAILY [facility] Last Admin: 11/26/16 08:54 Dose: 2,000 iu Lidocaine (Lidoderm) 1 ea TD DAILY [facility] Last Admin: 11/26/16 08:54 Dose: 1 ea Losartan Potassium (Cozaar) 100 mg PO DAILY [facility] Last Admin: 11/26/16 08:54 Dose: 100 mg Oxycodone/Acetaminophen (Percocet 5/325 Mg Tab) 1 tab PO Q4 PRN PRN Reason: Pain, moderate (4-7) Stop: 11/28/16 09:10 Last Admin: 11/26/16 08:58 Dose: 1 tab Sotalol HCl (Betapace) 80 mg PO Q12H [facility] Last Admin: 11/26/16 08:54 Dose: 80 mg - Labs Labs: 11/21/16 06:00 11/21/16 06:00 PT 15.3 Seconds (9.8-13.1) H 11/21/16 06:00 INR 1.4 (0.9-1.2) H 11/21/16 06:00 APTT 32.8 Seconds (25.6-37.1) 11/21/16 06:00 - Constitutional Appears: No Acute Distress - Head Exam Head Exam: NORMAL INSPECTION - Eye Exam Eye Exam: PERRL - ENT Exam ENT Exam: Normal Oropharynx - Neck Exam Neck Exam: Normal Inspection - Respiratory Exam Respiratory Exam: NORMAL BREATHING PATTERN - Cardiovascular Exam Cardiovascular Exam: REGULAR RHYTHM - GI/Abdominal Exam GI & Abdominal Exam: Soft, Normal Bowel Sounds - Extremities Exam Extremities Exam: Tenderness (less L hip with decreased ROM) - Back Exam Back Exam: NORMAL INSPECTION - Neurological Exam Neurological Exam: Alert, Oriented x3 - Psychiatric Exam Psychiatric exam: Normal Mood - Skin Skin Exam: Warm Assessment and Plan (1) Contusion of hip Status: Acute (2) History of pacemaker Status: Chronic (3) Gait disturbance Status: Acute (4) HTN (hypertension) Status: Chronic (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
[2016-11-26 17:01] VITALS: BP 118/56; TEMP 97.7; O2SAT 96
== END 2016-11-26 16:30 | DRG 93 ==
LOC: H.TCU 16:17
PROVIDERS: ADMIT Internal Medicine Pulmonary Disease; ATTEND Internal Medicine Pulmonary Disease
PROC: F07Z9FZ Gait Training/Functional Ambulation Treatment using Assistive, Adaptive, Supportive or Protective Equipment (ICD-10-PCS; principal; 2016-11-15)
PROC: F07L6FZ Therapeutic Exercise Treatment of Musculoskeletal System - Lower Back / Lower Extremity using Assistive, Adaptive, Supportive or Protective Equipment (ICD-10-PCS; 2016-11-15)
PROC: F08Z2FZ Grooming/Personal Hygiene Treatment using Assistive, Adaptive, Supportive or Protective Equipment (ICD-10-PCS; 2016-11-16)
DX: G89.21 Chronic pain due to trauma (principal); S70.02XD Contusion of left hip, subsequent encounter; R26.89 Other abnormalities of gait and mobility; M25.552 Pain in left hip; M54.5 Low back pain; E11.9 Type 2 diabetes mellitus without complications; I48.91 Unspecified atrial fibrillation; I10 Essential (primary) hypertension; Z91.81 History of falling; Z96.643 Presence of artificial hip joint, bilateral; H91.90 Unspecified hearing loss, unspecified ear; Z95.0 Presence of cardiac pacemaker